=== PATIENT | male | born 1975 | race Caucasian/White ===

== ENCOUNTER 2023-01-15 20:00 | Outpatient (CLI) | payer OTHER, SELFPAY | END 2023-01-15 20:01 | disposition home or self-care (01) | LOC: SLEEP 01-16 07:18 | PROVIDERS: Family Provider Electrodiagnostic Medicine; Visit Provider Electrodiagnostic Medicine | DX: G47.33 Obstructive sleep apnea (adult) (pediatric) (principal) | CPT/HCPCS: 95810 ==

== ENCOUNTER 2023-03-21 20:00 | Outpatient (CLI) | payer OTHER, SELFPAY | END 2023-03-21 20:01 | disposition home or self-care (01) | LOC: SLEEP 03-22 04:01 | PROVIDERS: Family Provider Electrodiagnostic Medicine; Visit Provider Electrodiagnostic Medicine | DX: G47.33 Obstructive sleep apnea (adult) (pediatric) (principal) | CPT/HCPCS: 95811 ==

== ENCOUNTER 2024-04-07 08:25 | Outpatient (CLI) | payer OTHER, SELFPAY ==
--- NOTE | 2024-04-07 08:30 | MR_ITS ---
WS: [id number] MRI LUMBAR SPINE NONCONTRAST TECHNIQUE: Sagittal T1, T2 and STIR imaging. Axial T1 and T2 imaging. CLINICAL INFORMATION: INTERVERTEBRAL DISC DISORDER OF L REGION COMPARISON: CT 2015 FINDINGS: Mild lumbar curve. No acute compression. Evidence of prior hemilaminectomy at L3-L4. L1-L2: No significant disc bulging. Mild facet arthropathy. Spinal canal and foramen are patent. L2-L3: No significant disc bulging. Mild facet arthropathy. Spinal canal and foramen are patent. L3-L4: Prior LEFT hemilaminectomy. Mild disc bulging with slight effacement of the ventral thecal sac . Narrowing of the subarticular recess bilaterally. RIGHT foraminal protrusion with mild RIGHT and no significant LEFT foraminal narrowing. Moderate facet arthropathy. L4-L5: Shallow central disc protrusion with mild central canal stenosis. Mild RIGHT foraminal narrowi ng. Moderate facet arthropathy. Narrowing of the RIGHT subarticular recess. L5-S1: Shallow central and LEFT paracentral protrusion. Slight contact of the LEFT S1 nerve root. Mil d LEFT foraminal narrowing. Mild facet arthropathy. Visualized pelvic bony structures: Normal. Paravertebral soft tissues: Normal. MR/MR lumbar spine wo con* [id number] IMPRESSION: 1. LEFT L3-4 hemilaminectomy. Mild residual central canal stenosis with centra l disc osteophyte protrusion. 2. RIGHT foraminal protrusion L3-4 with mild RIGHT foraminal narrowing. 3. Mild central canal stenosis L4-5 with central disc protrusion and narrowing of the RIGHT subarticular recess. Mild RIGHT L4-5 foraminal narrowing. 4. Disc bulge L5-S1 slightly contacts the LEFT S1 nerve root.
== END 2024-04-07 08:26 | disposition home or self-care (01) ==
LOC: RAD 08:26
PROVIDERS: Family Provider Electrodiagnostic Medicine; PCP Electrodiagnostic Medicine; Visit Provider Electrodiagnostic Medicine
DX: M51.06 Intervertebral disc disorders with myelopathy, lumbar region (principal); M47.896 Other spondylosis, lumbar region; M51.36 Other intervertebral disc degeneration, lumbar region; Z98.890 Other specified postprocedural states
CPT/HCPCS: 72148